=== PATIENT | male | born 1970 | race Caucasian/White ===

== ENCOUNTER 2017-11-08 09:02 | Emergency (ER) | payer OTHER ==
[~2017-11-08] VITALS: Ht 167.6 cm; Wt 70.3 kg
== END 2017-11-08 13:34 | disposition home or self-care (01) ==
LOC: ER 09:02
DX: N39.0 Urinary tract infection, site not specified (principal); M54.5 Low back pain

== ENCOUNTER 2020-09-09 15:24 | Emergency (ER) | payer OTHER ==
[~2020-09-09] VITALS: Ht 167.6 cm; Wt 71.7 kg
== END 2020-09-09 20:56 | disposition home or self-care (01) ==
LOC: ER 15:24
DX: B34.9 Viral infection, unspecified (principal); R07.89 Other chest pain; R00.2 Palpitations

== ENCOUNTER → 2021-08-19 | Emergency (ER) | payer OTHER ==
[~2021-08-19] VITALS: Ht 167.6 cm; Wt 70.8 kg
[~2021-08-19] MED LIST: KETO10TA2 PO; MEDROLPACK PO
== END | disposition home or self-care (01) ==
LOC: ER 17:08
DX: M54.59 Other low back pain (principal); M54.9 Dorsalgia, unspecified; Z91.013 Allergy to seafood; Z91.040 Latex allergy status

== ENCOUNTER → 2022-03-06 | Outpatient (CLI) | payer OTHER | END | disposition home or self-care (01) | LOC: RAD 15:29 | DX: M99.01 Segmental and somatic dysfunction of cervical region (principal); M99.02 Segmental and somatic dysfunction of thoracic region; M99.03 Segmental and somatic dysfunction of lumbar region; M99.04 Segmental and somatic dysfunction of sacral region ==

== ENCOUNTER 2022-07-20 15:43 | Emergency (ER) | payer OTHER ==
[~2022-07-20] VITALS: Ht 167.6 cm; Wt 72.6 kg
== END 2022-07-20 18:40 | disposition home or self-care (01) ==
LOC: ER 15:43
DX: R00.2 Palpitations (principal); Z91.040 Latex allergy status; Z91.013 Allergy to seafood; Z91.012 Allergy to eggs

== ENCOUNTER → 2022-11-14 | Emergency (ER) | payer OTHER ==
[~2022-11-14] VITALS: Ht 167.6 cm; Wt 76.7 kg
== END | disposition home or self-care (01) ==
LOC: ER 11:47
DX: R51.9 Headache, unspecified (principal)

== ENCOUNTER 2023-01-17 14:19 | Emergency (ER) | payer OTHER ==
[~2023-01-17] VITALS: Ht 167.6 cm; Wt 71.7 kg
[2023-01-17] MEDS ORDERED: TENORMIN25 MG (14:33)
[2023-01-17 15:26] LABS: HEMATOCRIT 44.2 % (39.0-48.0); HEMOGLOBIN 14.4 g/dL (13-16.00); MEAN CELL VOLUME 86.4 fL (80.0-100.00); MEAN CORPUSCULAR HEMOGLOBIN 28.1 pg (27.00-32.0); MEAN CORPUSCULAR HGB CONC 32.5 g/dl (32.0-36.0); PLATELET COUNT 216 K/uL (150-450); RED BLOOD COUNT 5.12 M/uL (4.00-6.00); RED CELL DISTRIBUTION WIDTH 13.6 % (11.5-14.5)
[2023-01-17 16:00] LABS: CALCIUM 9.3 mg/dL (8.5-10.1); CREATININE SERUM 1.3 mg/dL (0.70-1.30); GFR 58.43; POTASSIUM 4.13 mEq/L (3.5-5.1)
== END 2023-01-17 16:28 | disposition home or self-care (01) ==
LOC: ER 14:19
PROVIDERS: General Practice
DX: F43.0 Acute stress reaction (principal); M47.9 Spondylosis, unspecified; I10 Essential (primary) hypertension; Z91.013 Allergy to seafood; Z91.012 Allergy to eggs; Z91.040 Latex allergy status; F41.0 Panic disorder [episodic paroxysmal anxiety]